=== PATIENT | male | born 1960 | race African-American/Black ===

== ENCOUNTER 2017-05-02 09:20 | Emergency (ER) | payer MEDICAID ==
[~2017-05-02] VITALS: Ht 175.3 cm; Wt 80.0 kg
[2017-05-02 12:35] LABS: BLOOD UREA NITROGEN 13 mg/dL (7-18)
[2017-05-02 12:38] LABS: ASPARTATE AMINO TRANSFERASE 49 U/L (15-37)
[2017-05-02 12:49] VITALS: BP 130/64
== END 2017-05-02 14:13 | disposition home or self-care (01) ==
LOC: ED 12:09
DX: K57.32 Diverticulitis of large intestine without perforation or abscess without bleeding (principal); J45.909 Unspecified asthma, uncomplicated; Z88.8 Allergy status to other drugs, medicaments and biological substances
CPT/HCPCS: 36415; 74176; 80053; 81003; 83690; 85025

== ENCOUNTER 2017-11-25 14:31 | Emergency (ER) | payer MEDICAID ==
[~2017-11-25] VITALS: Ht 175.3 cm; Wt 80.0 kg
[2017-11-25 14:33] VITALS: BP 130/88
== END 2017-11-25 15:24 | disposition home or self-care (01) ==
LOC: ED 15:06
DX: R21 Rash and other nonspecific skin eruption (principal); E78.5 Hyperlipidemia, unspecified; J45.909 Unspecified asthma, uncomplicated
CPT/HCPCS: 99283

== ENCOUNTER 2019-02-16 09:08 | Emergency (ER) | payer MEDICAID ==
[~2019-02-16] VITALS: Ht 175.3 cm; Wt 84.0 kg
[2019-02-16 09:18] VITALS: BP 133/95
--- NOTE | 2019-02-16 10:00 | NUR ---
Pt to 21 from lobby
[2019-02-16] MEDS ORDERED: MAALOX/HYOSCYAMINE/LIDOCAINE 45 ML BTL PO ONE (10:30)
[2019-02-16 10:40] LABS: BASOPHILS # (AUTO) 0.08 x10^3/uL (0-0.1); BASOPHILS % (AUTO) 1 % (0-1); EOSINOPHILS # (AUTO) 0.41 x10^3/uL (0-0.4); EOSINOPHILS % (AUTO) 5 % (1-7); LYMPHOCYTES # (AUTO) 1.98 x10^3/uL (1-3.4); LYMPHOCYTES % (AUTO) 25 % (22-44); MD NO; MEAN CORPUSCULAR HGB CONC 32.9 g/dL (33.2-36.2); MEAN CORPUSCULAR VOLUME 82.1 fL (81-97); MEAN PLATELET VOLUME 8.7 fL (7.4-10.4); MONOCYTES # (AUTO) 0.84 x10^3/uL (0.2-0.8); MONOCYTES % (AUTO) 11 % (2-9); NEUTROPHILS # (AUTO) 4.73 x10^3/uL (1.8-6.8); NEUTROPHILS % (AUTO) 59 % (42-75); PLATELET COUNT 209 x10^3/uL (130-400); RED BLOOD COUNT 5.82 x10^6/uL (4.38-5.82); RED CELL DISTRIBUTION WIDTH 15.6 % (9.4-14.8)
[2019-02-16 10:50] LABS: ALANINE AMINOTRANSFERASE 156 U/L (12-78); ALBUMIN 3.9 g/dL (3.4-5.0); ANION GAP 6 mmol/L (5-15); CALCIUM 8.8 mg/dL (8.5-10.1); CHLORIDE 108 mmol/L (98-107); CREATININE 1.05 mg/dL (0.7-1.3)
[2019-02-16] MEDS ORDERED: MAALOX/HYOSCYAMINE/LIDOCAINE 45 ML BTL ONE (10:50)
[2019-02-16 10:54] LABS: ALKALINE PHOSPHATASE 103 U/L (45-117); BILIRUBIN,TOTAL 0.5 mg/dL (0.2-1.0); TOTAL PROTEIN 7.5 g/dL (6.4-8.2); TROPONIN I < 0.015 ng/mL (0.000-0.045)
== END 2019-02-16 11:27 | disposition home or self-care (01) ==
LOC: ED 11:13
DX: R10.13 Epigastric pain (principal); E78.5 Hyperlipidemia, unspecified; Z88.6 Allergy status to analgesic agent; J45.909 Unspecified asthma, uncomplicated
CPT/HCPCS: 36415; 71045; 76700; 80053; 83690; 84484; 85025; 93005; 99284

== ENCOUNTER 2019-11-22 11:33 | Emergency (ER) | payer MEDICAID, OTHER ==
[~2019-11-22] VITALS: Ht 175.3 cm; Wt 82.6 kg
[2019-11-22 11:40] VITALS: BP 143/75
[2019-11-22] MEDS ORDERED: KETOROLAC 30 MG/1 ML IM ONE (12:00)
[2019-11-22] MEDS ORDERED: METHOCARBAMOL 750 MG TABLET PO ONE (12:00)
[2019-11-22] MEDS ORDERED: KETOROLAC 30 MG/1 ML ONE (12:08)
[2019-11-22] MEDS ORDERED: METHOCARBAMOL 750 MG TABLET ONE (12:08)
--- NOTE | 2019-11-22 12:50 | NUR ---
pt given dc instructions and script, educated regarding rx for naproxen and robaxan. pt a&o, resps even and unlabored, amb to dc with steady gait. nadn at dc.
== END 2019-11-22 12:51 | disposition home or self-care (01) ==
LOC: ED 12:45
DX: M54.5 Low back pain (principal)
CPT/HCPCS: 72110; 96372; 99283; J1885

== ENCOUNTER 2020-02-17 06:37 | Emergency (ER) | payer MEDICAID, OTHER ==
[~2020-02-17] VITALS: Ht 175.3 cm; Wt 80.8 kg
[2020-02-17] MEDS ORDERED: CEFTRIAXONE 250 MG IM ONE (07:30)
[2020-02-17] MEDS ORDERED: AZITHROMYCIN 500 MG TABLET PO ONE (07:30)
--- NOTE | 2020-02-17 07:31 | NUR ---
Bedside report received from [facility] PERSON, pt care assumed at this time.
--- NOTE | 2020-02-17 07:38 | NUR ---
Pt resting on gurney, eyes open, even and unlabored respirations, call light within reach, NAD, denies additional needs, waiting for urine sample, WCTM
[2020-02-17] MEDS ORDERED: CEFTRIAXONE 250 MG ONE (07:44)
[2020-02-17] MEDS ORDERED: AZITHROMYCIN 500 MG TABLET ONE (07:44)
[2020-02-17 08:04] VITALS: BP 129/80
--- NOTE | 2020-02-17 08:05 | NUR ---
Patient given discharge instructions and they have confirmed that they understand the instructions. Patient ambulatory with steady gait. All questions answer. Pt denies additional needs at this time.
== END 2020-02-17 08:06 | disposition home or self-care (01) ==
LOC: ED 07:05
DX: Z20.2 Contact with and (suspected) exposure to infections with a predominantly sexual mode of transmission (principal); J45.909 Unspecified asthma, uncomplicated; E78.5 Hyperlipidemia, unspecified
CPT/HCPCS: 87491; 87591; 96372; 99283; J0696

== ENCOUNTER 2020-11-29 11:32 | Emergency (ER) | payer MEDICAID ==
[~2020-11-29] VITALS: Ht 175.3 cm; Wt 79.0 kg
[2020-11-29 11:35] VITALS: BP 160/90
--- NOTE | 2020-11-29 12:16 | NUR ---
PT AMBULATED TO DISCHARGE WITH STEADY GAIT. PT ENCOURAGED TO FOLLOWUP DISCUSSED. PT EDUCATED TO RETURN TO THE ED WITH WORSENING SYMPTOMS. PHONE NUMBER PROVIDED FOR FOLLOWUP LABS.
== END 2020-11-29 12:18 | disposition home or self-care (01) ==
LOC: ED 12:16
DX: Z20.2 Contact with and (suspected) exposure to infections with a predominantly sexual mode of transmission (principal); J45.909 Unspecified asthma, uncomplicated; E78.5 Hyperlipidemia, unspecified; F17.200 Nicotine dependence, unspecified, uncomplicated; Z88.6 Allergy status to analgesic agent
CPT/HCPCS: 87491; 87591; 99283

== ENCOUNTER 2021-02-09 11:14 | Emergency (ER) | payer MEDICAID, OTHER ==
[~2021-02-09] VITALS: Ht 175.3 cm; Wt 75.5 kg
[2021-02-09] MEDS ORDERED: DIPH,PERTUSS(ACELL),TET VAC/PF 0.5 ML IM-VACC ONE ×2 (12:00→12:05)
--- NOTE | 2021-02-09 12:20 | NUR ---
PT MEDICATED PER MAR
[2021-02-09 12:34] LABS: BASOPHILS % (AUTO) 1 % (0-1); EOSINOPHILS % (AUTO) 3 % (1-7); LYMPHOCYTES % (AUTO) 21 % (22-44); MD NO; MEAN CORPUSCULAR HEMOGLOBIN 27.1 pg (27.5-34.5); MEAN CORPUSCULAR HGB CONC 32.6 g/dL (33.2-36.2); MEAN PLATELET VOLUME 8.4 fL (7.4-10.4); MONOCYTES % (AUTO) 9 % (2-9); NEUTROPHILS % (AUTO) 66 % (42-75); PLATELET COUNT 262 x10^3/uL (130-400); RED BLOOD COUNT 5.57 x10^6/uL (4.38-5.82); RED CELL DISTRIBUTION WIDTH 14.7 % (9.4-14.8)
[2021-02-09 12:41] LABS: ANION GAP 4 mmol/L (5-15); CALCIUM 9.2 mg/dL (8.5-10.1); CHLORIDE 110 mmol/L (98-107); CREATININE 1.08 mg/dL (0.7-1.3)
[2021-02-09] MEDS ORDERED: NEOSPORIN OINT. PKT 1 PACKET ONE (12:54)
[2021-02-09 13:16] VITALS: BP 124/74
== END 2021-02-09 13:18 | disposition home or self-care (01) ==
LOC: ED 11:56
DX: L03.113 Cellulitis of right upper limb (principal); E78.5 Hyperlipidemia, unspecified; J45.909 Unspecified asthma, uncomplicated; F17.210 Nicotine dependence, cigarettes, uncomplicated
CPT/HCPCS: 36415; 80048; 82040; 85025; 90471; 90715; 99283; 99284; 99406

== ENCOUNTER 2021-03-26 07:56 | Emergency (ER) | payer MEDICAID ==
[~2021-03-26] VITALS: Ht 175.3 cm; Wt 76.8 kg
--- NOTE | 2021-03-26 08:45 | NUR ---
PT WITH C/O COUGH, FEVER, CHILLS AND BODY ACHES X 6 DAYS, TESTED POSITIVE FOR COVID. NADN. CALL LIGHT W/IN REACH. PA BEDSIDE, COLLECTED COVID SAMPLE.
[2021-03-26 09:16] VITALS: BP 129/91
--- NOTE | 2021-03-26 09:17 | NUR ---
Patient given discharge instructions and they have confirmed that they understand the instructions. Patient ambulatory with steady gait.
== END 2021-03-26 09:36 | disposition home or self-care (01) ==
LOC: ED 08:51
DX: U07.1 COVID-19 (principal); J06.9 Acute upper respiratory infection, unspecified; J00 Acute nasopharyngitis [common cold]; E78.5 Hyperlipidemia, unspecified
CPT/HCPCS: 99283; U0003; U0005

== ENCOUNTER 2021-07-14 10:20 | Emergency (ER) | payer MEDICAID ==
[~2021-07-14] VITALS: Ht 175.3 cm; Wt 73.9 kg
[2021-07-14 10:28] VITALS: BP 143/87
--- NOTE | 2021-07-14 10:33 | NUR ---
Does not want to get undressed.
== END 2021-07-14 11:32 | disposition home or self-care (01) ==
LOC: ED 10:50
DX: A60.01 Herpesviral infection of penis (principal); F17.200 Nicotine dependence, unspecified, uncomplicated; E78.5 Hyperlipidemia, unspecified; J45.909 Unspecified asthma, uncomplicated
CPT/HCPCS: 99283